=== PATIENT | female | born 1955 | race African-American/Black ===

== ENCOUNTER → 2017-11-13 | Outpatient (CLI) | payer BC | END | disposition home or self-care (01) | LOC: PCVCIMAG 08:55 | DX: I65.23 Occlusion and stenosis of bilateral carotid arteries (principal); R19.00 Intra-abdominal and pelvic swelling, mass and lump, unspecified site; I25.10 Atherosclerotic heart disease of native coronary artery without angina pectoris; I10 Essential (primary) hypertension; I25.5 Ischemic cardiomyopathy; I73.9 Peripheral vascular disease, unspecified; E78.00 Pure hypercholesterolemia, unspecified; F17.210 Nicotine dependence, cigarettes, uncomplicated; Z79.899 Other long term (current) drug therapy; Z79.82 Long term (current) use of aspirin | CPT/HCPCS: 93880; 93978; G0463 ==

== ENCOUNTER → 2017-11-16 | Outpatient (CLI) | payer BC ==
[~2017-11-16] MED LIST: REGADENOSON 0.4 MG/5 ML DISP.SYRIN. IV
== END | disposition home or self-care (01) ==
LOC: PCVCIMAG 12:11
DX: Z01.818 Encounter for other preprocedural examination (principal); R07.9 Chest pain, unspecified; R06.09 Other forms of dyspnea; I10 Essential (primary) hypertension; E78.5 Hyperlipidemia, unspecified; I73.9 Peripheral vascular disease, unspecified
CPT/HCPCS: 78452; 93017; A9500; J2785

== ENCOUNTER → 2019-04-01 | Outpatient (CLI) | payer BC ==
--- NOTE | 2019-04-01 15:07 | PCVCIMAG ---
APPROVED REPORT Indications Bruit Stenosis Risk Factors History of Smoking Doppler Spectral Velocity Analysis PSV / EDVPSV / EDV ECA (R) 131 / 11 cm/sECA (L) 143 / 29 cm/s dICA (R) 137 / 34 cm/sdICA (L) 102 / 35 cm/s Rose (R) 133 / 31 cm/smICA (L) 106 / 35 cm/s pICA (R) 145 / 35 cm/spICA (L) 119 / 25 cm/s Bulb (R) 85 / 18 cm/sBulb (L) 92 / 15 cm/s dCCA (R) 103 / 19 cm/sdCCA (L) 98 / 23 cm/s mCCA (R) 87 / 19 cm/smCCA (L) 100 / 21 cm/s Vert (R) 74 / 17 cm/sVert (L) 48 / 11 cm/s ICA/CCA 1.41ICA/CCA 1.21 Basic Measurements Blood Pressure: Pulses: Right Left RightLeft Brachial(Sitting) 158/63wlEl540/80mmHgTemporal Real Time B-Mode Imaging Vert. (R)AntegradeVert. (L)Antegrade Findings RIGHT CAROTID: The carotid bulb has moderate plaque. The proximal internal carotid artery shows 50-60% stenosis. The common carotid artery shows no significant stenosis. The external carotid artery shows 40% stenosis. LEFT CAROTID: The carotid bulb has moderate plaque. The proximal internal carotid artery shows 40% stenosis. The common carotid artery shows no significant stenosis. The external carotid artery shows 40% stenosis. Conclusion 50-60% stenosis of the right internal carotid artery with moderate plaque. 40% stenosis of the left internal carotid artery with moderate plaque. No progression since October 2017 study.
== END | disposition home or self-care (01) ==
LOC: PCVCIMAG 12:35
PROVIDERS: ATTEND Internal Medicine Cardiovascular Disease
DX: I65.23 Occlusion and stenosis of bilateral carotid arteries (principal)
CPT/HCPCS: 93880